=== PATIENT | female | born 1965 | race Hispanic/Latino ===

== ENCOUNTER 2020-10-31 01:49 | Emergency (ER) | payer BC, OTHER, SELFPAY ==
[2020-10-31] MEDS ORDERED: Ondansetron ODT 4 MG TAB ONE (02:06)
[2020-10-31] MEDS ORDERED: Ibuprofen 200 MG TAB ONE (02:24)
[2020-10-31] MEDS ORDERED: Dexamethasone 10 MG/ML VIAL ONE (02:24)
[2020-10-31] MEDS ORDERED: Acetaminophen 500 MG TAB ONE (02:24)
== END 2020-10-31 03:36 | disposition home or self-care (01) ==
LOC: CSHERS 01:49
DX: K04.7 Periapical abscess without sinus (principal); K02.9 Dental caries, unspecified
CPT/HCPCS: 99283; J1100; Q0162

== ENCOUNTER 2020-11-03 16:48 | Observation (INO) | payer OTHER, SELFPAY ==
[2020-11-03 18:50] LABS: #Eosinphils 0.1 10x3/uL (0.0-0.5); #Monocytes 0.5 10x3/uL (0.0-1.1); #Neutrophils 3.9 10x3/uL (1.5-8.4); %Basophils 0.2 % (0.0-2.0); %Eosinophils 1.1 % (0.0-6.0); %Lymphocytes 19.3 % (18.0-47.0); %Monocytes 8.1 % (0.0-10.0); %Neutrophils 70.6 % (40.0-75.0); Hemoglobin 12.3 g/dL (12.0-15.5); Mean Corpuscular HGB CONC 34.1 g/dL (32.0-36.0); Mean Corpuscular Hemoglobin 30.7 pg (27.0-33.0); Mean Corpuscular Volume 90.2 fl (81.6-98.3); Mean Platelet Volume 9.4 fl (7.4-10.4); Platelet Count 94 10x3/uL (150-450); RBC Distribution Width 12.9 % (11.5-14.5); Red Blood Cell (RBC) Count 3.97 10x6/uL (3.90-5.03); White Blood Cell (WBC) Count 5.5 10x3/uL (3.5-10.5)
[2020-11-03 19:01] LABS: ALT (SGPT) 11 U/L (8-55); AST (SGOT) 21 U/L (5-34); Albumin 3.6 g/dL (3.5-5.0); Alkaline Phosphatase 107 U/L (40-110); Anion Gap 14 mmol/L (10-20); BUN (Urea Nitrogen) 8 mg/dL (9.8-20.1); Calc. Creatinine Clearance 0 mL/min (70-130); Calcium 8.7 mg/dL (7.8-10.44); Carbon Dioxide 23 mmol/L (22-29); Chloride 103 mmol/L (98-107); Globulin 3.6 g/dL (2.4-3.5); Glucose 94 mg/dL (70-105); Lipase 24 U/L (8-78); Potassium 3.9 mmol/L (3.5-5.1); Protein, Total 7.2 g/dL (6.0-8.3); Sodium 136 mmol/L (136-145)
[2020-11-03] MEDS ORDERED: Morphine 4 MG/ML VIAL ONE (19:03)
[2020-11-03] MEDS ORDERED: Ondansetron PF 4 MG/2 ML Vial ONE (19:03)
[2020-11-03 19:34] LABS: Platelet Morphology Comment Appears Decreased; RBC Morphology Normal
[2020-11-03 20:01] LABS: Bilirubin Neg (Negative); Blood, Urine Negative (Negative); Clarity Clear (Clear); Glucose, Urine (Dipstick) Normal (Negative); Ketone, Urine Negative (Negative); Leukocyte Negative (Negative); Nitrite Negative (Negative); Protein, Urine (Dipstick) Negative (Neg-Trace); Urobilinogen Normal mg/dL (Less than 2)
[2020-11-03] MEDS ORDERED: Lidocaine Viscous Sol 2% 15 ml UD Cup ONE (20:47)
[2020-11-03] MEDS ORDERED: Mag-Al Plus 1200 MG/1200 MG/120 MG/30 ML UDCUP ONE (20:47)
[2020-11-03] MEDS ORDERED: diphenhydrAMINE 50 MG/ML VIAL ONE (21:21)
[2020-11-03] MEDS ORDERED: Haloperidol Lactate 5 MG/ML VIAL ONE (21:21)
[2020-11-03 21:40] LABS: Troponin I Less than 0.010 ng/mL (< 0.028)
[2020-11-03] MEDS ORDERED: Cefepime 2 GM VIAL ONE (23:54)
[2020-11-04] MEDS ORDERED: Ondansetron ODT 4 MG TAB PO PRN (00:15)
[2020-11-04] MEDS ORDERED: Ondansetron PF 4 MG/2 ML Vial IVP PRN (00:15)
[2020-11-04 02:17] VITALS: BMI 29.6
[2020-11-04 07:01] LABS: #Eosinphils 0.1 10x3/uL (0.0-0.5); #Monocytes 0.3 10x3/uL (0.0-1.1); #Neutrophils 2.9 10x3/uL (1.5-8.4); %Basophils 0.2 % (0.0-2.0); %Eosinophils 1.4 % (0.0-6.0); %Lymphocytes 24.2 % (18.0-47.0); %Monocytes 7.2 % (0.0-10.0); %Neutrophils 66.5 % (40.0-75.0); Hemoglobin 10.5 g/dL (12.0-15.5); Mean Corpuscular HGB CONC 33.8 g/dL (32.0-36.0); Mean Corpuscular Hemoglobin 30.8 pg (27.0-33.0); Mean Corpuscular Volume 91.2 fl (81.6-98.3); Mean Platelet Volume 9.5 fl (7.4-10.4); Platelet Count 87 10x3/uL (150-450); Red Blood Cell (RBC) Count 3.41 10x6/uL (3.90-5.03); White Blood Cell (WBC) Count 4.4 10x3/uL (3.5-10.5)
[2020-11-04] MEDS: Enoxaparin Sodium 40 MG/0.4 ML SYRINGE SC SCH (11:24)
[2020-11-04] MEDS: Morphine 4 MG/ML VIAL SLOW IVP PRN ×2 (11:35→16:37)
[2020-11-05 01:27] LABS: SARS-CoV-2 PCR by NAA Not Detected (NotDetected)
[2020-11-05 05:24] LABS: #Eosinphils 0.1 10x3/uL (0.0-0.5); #Monocytes 0.4 10x3/uL (0.0-1.1); #Neutrophils 3.2 10x3/uL (1.5-8.4); %Basophils 0.2 % (0.0-2.0); %Eosinophils 2.2 % (0.0-6.0); %Lymphocytes 26.3 % (18.0-47.0); %Monocytes 7.1 % (0.0-10.0); Hemoglobin 11.4 g/dL (12.0-15.5); Mean Corpuscular HGB CONC 33.7 g/dL (32.0-36.0); Mean Corpuscular Hemoglobin 30.2 pg (27.0-33.0); Mean Corpuscular Volume 89.4 fl (81.6-98.3); Mean Platelet Volume 9.8 fl (7.4-10.4); RBC Distribution Width 12.7 % (11.5-14.5); Red Blood Cell (RBC) Count 3.78 10x6/uL (3.90-5.03); White Blood Cell (WBC) Count 5.1 10x3/uL (3.5-10.5)
[2020-11-05 05:26] LABS: Platelet Count 102 10x3/uL (150-450)
[2020-11-05 05:32] LABS: ALT (SGPT) 21 U/L (8-55); AST (SGOT) 37 U/L (5-34); Albumin 3.5 g/dL (3.5-5.0); Alkaline Phosphatase 121 U/L (40-110); Anion Gap 13 mmol/L (10-20); BUN (Urea Nitrogen) 7 mg/dL (9.8-20.1); Bilirubin, Total 1.2 mg/dL (0.2-1.2); Calc. Creatinine Clearance 106 mL/min (70-130); Calcium 8.6 mg/dL (7.8-10.44); Carbon Dioxide 24 mmol/L (22-29); Chloride 106 mmol/L (98-107); Globulin 3.5 g/dL (2.4-3.5); Glucose 93 mg/dL (70-105); Magnesium 2.1 mg/dL (1.6-2.6); Potassium 3.9 mmol/L (3.5-5.1); Sodium 139 mmol/L (136-145)
[2020-11-05] MEDS: Enoxaparin Sodium 40 MG/0.4 ML SYRINGE SC SCH (11:43)
[2020-11-05 16:08] VITALS: BP 127/97; TEMP 98.1
== END 2020-11-05 16:30 | disposition home or self-care (01) ==
LOC: CSHERS 16:48 → CSHTELE 11-04 00:15 → UNDOADMOB 11-04 01:48
PROVIDERS: ADMIT Internal Medicine; ATTEND Family Medicine
DX: R10.9 Unspecified abdominal pain (principal); G89.29 Other chronic pain; B19.20 Unspecified viral hepatitis C without hepatic coma; K74.60 Unspecified cirrhosis of liver; K76.6 Portal hypertension; Z79.899 Other long term (current) drug therapy; D69.6 Thrombocytopenia, unspecified; Z20.822 Contact with and (suspected) exposure to COVID-19
CPT/HCPCS: 36415; 71045; 74177; 74181; 80053; 81003; 83690; 83735; 84484; 85025; 86850; 86900; 86901; 87040; 87635; 93005; 93010; 96365; 96367; 96372; 96375; 96376; G0378; J0692; J1200; J1630; J1650; J2270; J2405; J3370; U0003; U0005

== ENCOUNTER 2025-03-12 18:02 | Emergency (ER) | payer OTHER ==
[2025-03-12] MEDS ORDERED: Cyclobenzaprine 10 MG TAB ONE (19:37)
[2025-03-12] MEDS ORDERED: Ketorolac Tromethamine 30 MG (1 mL) VIAL ONE (19:37)
[2025-03-12] MEDS ORDERED: HYDROcodone/Acetaminophen 5/325 mg Tablet ONE (19:56)
[2025-03-12] MEDS ORDERED: Dexamethasone 10 MG/ML VIAL ONE (20:24)
[2025-03-12 22:02] LABS: Glucose, Urine (Dipstick) Normal (Negative); Leukocyte Negative (Negative); Protein, Urine (Dipstick) Negative (Neg-Trace); Specific Gravity, Urine 1.010 (1.005-1.030)
[2025-03-12 22:16] LABS: Bacteria/HPF Rare-Few HPF (None Seen); CAUTI Indications for Culture Pelvic or flank pain; RBC/HPF 0-3 HPF (0-3); WBC/HPF 0-3 HPF (0-3)
[2025-03-12 22:17] LABS: Urine Culture Reflex No No
[2025-03-12 23:12] LABS: ALT (SGPT) 23 U/L (Less than 34); AST (SGOT) 63 U/L (11-34); Albumin 4.2 g/dL (3.1-4.5); Alkaline Phosphatase 104 U/L (40-110); Anion Gap 11 mmol/L (10-20); BUN (Urea Nitrogen) 12 mg/dL (9.8-20.1); Bilirubin, Total 1.0 mg/dL (0.3-1.2); Calc. Creatinine Clearance 0 mL/min (70-130); Calcium 9.5 mg/dL (7.8-10.44); Carbon Dioxide 26 mmol/L (23-31); Chloride 105 mmol/L (98-107); Globulin 3.6 g/dL (2.4-3.5); Glucose 105 mg/dL (80-115); Potassium 3.9 mmol/L (3.5-5.1); Sodium 138 mmol/L (136-145)
[2025-03-12 23:23] LABS: Platelet Count 102 10x3/uL (150-450)
[2025-03-12 23:24] LABS: #Basophils Less than 0.03 10x3/uL (0.0-0.2); #Eosinophils 0.08 10x3/uL (0.0-0.5); #Monocytes 0.14 10x3/uL (0.0-1.1); #Neutrophils 2.20 10x3/uL (1.5-8.4); %Basophils 0.3 % (0.0-2.0); %Eosinophils 2.5 % (0.0-6.0); %Lymphocytes 24.3 % (18.0-47.0); %Monocytes 4.4 % (0.0-10.0); %Neutrophils 68.5 % (40.0-75.0); Hematocrit 37.1 % (34.9-44.5); Hemoglobin 12.6 g/dL (12.0-15.5); Mean Corpuscular Hemoglobin 30.1 pg (27.0-33.0); Mean Corpuscular Volume 88.5 fL (81.6-98.3); Red Blood Cell (RBC) Count 4.19 10x6/uL (3.90-5.03); White Blood Cell (WBC) Count 3.21 10x3/uL (3.5-10.5)
== END 2025-03-12 23:31 | disposition home or self-care (01) ==
LOC: CSHERS 18:02
DX: M48.061 Spinal stenosis, lumbar region without neurogenic claudication (principal); F17.210 Nicotine dependence, cigarettes, uncomplicated
CPT/HCPCS: 74176; 80053; 81001; 85025; J1100; J1885; 36415; 51798; 96372

== ENCOUNTER 2025-03-26 17:51 | Emergency (ER) | payer OTHER ==
[2025-03-26] MEDS ORDERED: Ketorolac Tromethamine 30 MG (1 mL) VIAL ONE (18:46)
[2025-03-26] MEDS ORDERED: HYDROcodone/Acetaminophen 5/325 mg Tablet ONE (18:46)
== END 2025-03-26 19:30 | disposition home or self-care (01) ==
LOC: CSHERS 17:51
DX: M54.50 Low back pain, unspecified (principal); F17.210 Nicotine dependence, cigarettes, uncomplicated
CPT/HCPCS: 96372; 99283; J1885